=== PATIENT | female | born 1970 | race Asian ===

== ENCOUNTER 2018-03-08 13:03 | Emergency (ER) | payer OTHER ==
[~2018-03-08] VITALS: Ht 165.1 cm; Wt 59.0 kg
[~2018-03-08 13:03] MED LIST: FLUOXETINE40 MG PO; LORA1TAB17 PO
[2018-03-08 14:11] VITALS: BP 126/70; TEMP 99.5
== END 2018-03-08 14:11 | disposition home or self-care (01) ==
LOC: ED 13:03
DX: S20.211A Contusion of right front wall of thorax, initial encounter (principal); Y04.0XXA Assault by unarmed brawl or fight, initial encounter; Y92.89 Other specified places as the place of occurrence of the external cause
CPT/HCPCS: 96372; 99282; J1885

== ENCOUNTER 2018-05-30 07:11 | Emergency (ER) | payer OTHER ==
[~2018-05-30] VITALS: Ht 162.6 cm; Wt 65.8 kg
[2018-05-30 07:53] LABS: PLATELET COUNT 280 K/uL (152-353)
[2018-05-30 08:02] LABS: POTASSIUM 4.2 mmol/L (3.6-5.2)
[2018-05-30 08:22] VITALS: BP 120/82; TEMP 98
== END 2018-05-30 08:25 | disposition home or self-care (01) ==
LOC: ED 07:11
DX: J20.9 Acute bronchitis, unspecified (principal)
CPT/HCPCS: 36415; 80053; 85027; 87081; 87880; 99283

== ENCOUNTER 2018-06-08 09:31 | Emergency (ER) | payer OTHER ==
[~2018-06-08] VITALS: Ht 162.6 cm; Wt 69.9 kg
[2018-06-08 09:35] VITALS: BP 112/59; TEMP 98.2
== END 2018-06-08 10:00 | disposition home or self-care (01) ==
LOC: ED 09:31
DX: K02.9 Dental caries, unspecified (principal)
CPT/HCPCS: 96372; 99282; J1885